=== PATIENT | male | born 1995 | race Caucasian/White ===

== ENCOUNTER 2018-05-31 19:04 | Emergency (ER) | payer OTHER ==
[2018-05-31 19:10] VITALS: BP 131/78; PULSE 106; TEMP 97.8; BMI 23.6
--- NOTE | 2018-05-31 19:34 | PDOC ---
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 He noted at approximately 3pm a sudden onset of severe shortness of breath He could not catch his breath He thought his symptoms could be due to asthma, used his asthma pump (but it was ) He felt a nguyen of pressure to his head No LOC, though he felt that he might pass out No chest pain No recent travel No prior episodes like this No fevers, chills cough or recent illness Pt was not exposed to toxic fumes He was able to eat at work today, no vomiting, no diarrhea Of note, pt also reports epigastric abdominal pain This began slightly after his shortness of breath began It is described as burning, located in the epigastrium PMH: Asthma PSH: Appendectomy Meds: Ventolin ALL: NKDA Social: Denies tobacco, drug, Alcohol use FH: non contributory PMD: Ang Beard, last visit September 2017 GENERAL/CONSTITUTIONAL: No: fever, chills, weakness, loss of appetite. HEAD, EYES, EARS, NOSE AND THROAT: No: change in vision, ear pain, discharge, sore throat, throat swelling. CARDIOVASCULAR: No: chest pain, lightheadedness, palpitations, syncope RESPIRATORY: Yes: shortness of breath No: cough, wheezing, hemoptysis, stridor. GASTROINTESTINAL: Yes: epigastric pain No: nausea, vomiting, diarrhea GENITOURINARY: No: dysuria, hematuria, frequency, urgency, flank pain. MUSCULOSKELETAL: No: back pain, neck pain, joint pain, muscle swelling or pain SKIN AND BREASTS: No: lesions, pallor, rash or easy bruising. NEUROLOGIC: No: headache, vertigo, paresthesias, weakness ENDOCRINE: No: unexplained weight gain or loss HEMATOLOGIC/LYMPHATIC: No: anemia, easy bleeding, swelling nodes. PE: GENERAL: The patient is in no acute distress, appears winded HEAD: Normal . EYES: PERRLA, EOMI, sclera anicteric, conjunctiva clear. ENT: Ears normal, nares patent, oropharynx clear without exudates. Moist mucous membranes. NECK: Normal range of motion, supple without lymphadenopathy, JVD LUNGS: Breath sounds equal, clear to auscultation bilaterally. No wheezes, and no crackles. HEART:Regular rate and rhythm, normal S1 and S2 without murmur, rub or gallop. ABDOMEN: Soft, (+) epigastric tenderness to palpation, No guarding, no rebound. No masses palpable. EXTREMITIES: Normal range of motion, no edema. No clubbing or cyanosis. No erythema, or tenderness. NEUROLOGICAL: Cranial nerves II through XII grossly intact. Normal speech. No focal neurological deficits. MUSCULOSKELETAL: Back non-tender to palpation, no CVA tenderness SKIN: Warm, Dry, normal turgor, no rashes or lesions noted. 05/31/18 19:42 05/31/18 19:48 Past History - Past Medical History Allergies/Adverse Reactions: Allergies Allergy/AdvReac Type Severity Reaction Status Date / Time No Known Allergies Allergy Verified 09/18/12 17:40 Home Medications: Ambulatory Orders No Home Medications 0 dose .ROUTE UTDICT 09/17/12 Asthma: Yes COPD: No - Surgical History Appendectomy: Yes - Immunization History Immunization Up to Date: No - Suicide/Smoking/Psychosocial Hx Smoking Status: No Smoking History: Never smoked Number of Cigarettes Smoked Daily: 0 Substance Use Type: None *Physical Exam - Vital Signs Last Vital Signs Temp Pulse Resp BP Pulse Ox 97.8 F 106 H 28 H 131/78 100 05/31/18 19:06 05/31/18 19:06 05/31/18 19:06 05/31/18 19:06 05/31/18 19:06 ED Treatment Course - LABORATORY CBC & Chemistry Diagram: 05/31/18 19:53 05/31/18 19:53 Medical Decision Making - Medical Decision Making 05/31/18 19:48 Efra presents with a complaint of shortness of breath DD is broad and includes: Asthma (though pt has no wheezing, ? resolved after use of inhaler) Pneumonia/Bronchitis PE Pleural effusion Acidosis --> tachypnea 05/31/18 19:49 Will do: Labs CXR IVF Pepcid Re assess 06/01/18 00:51 Laboratory Tests 05/31/18 05/31/18 19:53 19:53 WBC 21.4 H Hgb 15.8 Hct 46.9 Plt Count 292 Neutrophils % 88.4 H Sodium 137 Potassium 3.2 L Chloride 105 Carbon Dioxide 22 BUN 21 H Creatinine 1.3 Random Glucose 118 H Total Bilirubin 1.1 H AST 52 H ALT [address] abd and pelvis - hepatic steatosis Pt feels much better Will discharge to home Symptoms likely related to anxiety? claustrophobia D/c home Follow up with PMD Return precautions given *DC/Admit/Observation/Transfer Diagnosis at time of Disposition: Shortness of breath, Anxiety - Discharge Dispostion Disposition: HOME Condition at time of disposition: Stable Decision to Admit order: No - Referrals Referrals: Mike Beard MD [Primary Care Provider] - - Patient Instructions Printed Discharge Instructions: DI for Anxiety -- Adult, DI for Shortness of Breath - Post Discharge Activity
[2018-05-31] MEDS ORDERED: SODIUM CHLORIDE 1,000 ML IV SCH (19:45)
[2018-05-31] MEDS ORDERED: FAMOTIDINE 20 MG/50 ML IVPB 20 MG/50 ML MG IVPB ONE ×2 (19:50→20:05)
[2018-05-31 20:03] LABS: BASO % 0.5 % (0-2.0); HEMATOCRIT 46.9 % (35.4-49); HEMOGLOBIN 15.8 GM/dl (11.7-16.9); LYMPH % 5.1 % (8-40); MCH 28.6 pg (25.7-33.7); MCHC 33.8 g/dl (32.0-35.9); MEAN CELL VOLUME 84.7 fl (80-96); NEUT % 88.4 % (42.8-82.8); PLATELET COUNT 292 K/MM3 (134-434); RBC 5.53 M/mm3 (4.00-5.60); WHITE BLOOD COUNT 21.4 K/mm3 (4.0-10.8)
[2018-05-31 20:19] LABS: ALBUMIN 4.7 g/dl (3.5-5.0); ALK PHOS 40 U/L (32-92); ANION GAP 10 (8-16); BILIRUBIN,TOTAL 1.1 mg/dl (0.2-1.0); BLOOD UREA NITROGEN 21 mg/dl (7-18); CALCIUM 9.7 mg/dl (8.4-10.2); CHLORIDE 105 mmol/L (98-107); CO2 22 mmol/L (22-28); CREATININE 1.3 mg/dl (0.6-1.3); GLUCOSE,RANDOM 118 mg/dl (74-106); POTASSIUM 3.2 mmol/L (3.5-5.1); SGOT/AST 52 U/L (10-42); SGPT/ALT 48 U/L (10-40); SODIUM 137 mmol/L (136-145); TOT PROT 7.6 g/dl (6.4-8.3)
[2018-05-31 21:12] LABS: LIPASE 94 U/L (73-393)
== END 2018-05-31 23:15 | disposition home or self-care (01) ==
LOC: FER 19:04
PROC: 3E033GC Introduction of Other Therapeutic Substance into Peripheral Vein, Percutaneous Approach (ICD-10-PCS; principal; 2018-05-31)
PROC: 3E0337Z Introduction of Electrolytic and Water Balance Substance into Peripheral Vein, Percutaneous Approach (ICD-10-PCS; 2018-05-31)
DX: R06.02 Shortness of breath (principal); F41.9 Anxiety disorder, unspecified; J45.909 Unspecified asthma, uncomplicated
CPT/HCPCS: 36415; 71046-TC-FY; 71275-TC; 74177-TC; 80053; 83690; 85025; 96365; 99282-25; J7030

== ENCOUNTER 2024-04-01 04:23 | Day surgery (SDC) | payer OTHER ==
[2024-03-31 14:46] VITALS: BMI 30.7
[2024-04-01 11:36] VITALS: TEMP 98
[2024-04-01 11:39] VITALS: BP 125/83; PULSE 84; RESP 14
== END 2024-04-01 12:28 | disposition home or self-care (01) ==
LOC: JASU-ENDO 04:23
PROVIDERS: ATTEND Internal Medicine Gastroenterology
PROC: 0DB68ZX Excision of Stomach, Via Natural or Artificial Opening Endoscopic, Diagnostic (ICD-10-PCS; 2024-04-01)
PROC: 0DB98ZX Excision of Duodenum, Via Natural or Artificial Opening Endoscopic, Diagnostic (ICD-10-PCS; principal; 2024-04-01 09:30)
DX: K29.80 Duodenitis without bleeding (principal); K29.50 Unspecified chronic gastritis without bleeding; K44.9 Diaphragmatic hernia without obstruction or gangrene
CPT/HCPCS: 88305-TC; 88342-TC